=== PATIENT | male | born 1955 | race American Indian/Alaskan Native ===

== ENCOUNTER 2021-08-07 07:32 | Day surgery (SDC) | payer OTHER ==
[2021-08-04 11:54] LABS: Hematocrit 43.8 % (35.5-45.6); Hemoglobin 14.4 gm/dl (11.8-15.2); Mean Corpuscular HGB Conc 33 % (32-34); Mean Corpuscular Volume 90 fl (84-94); Platelet Count 249 K/mm3 (140-440); Red Blood Count 4.87 M/mm3 (3.65-5.03); Red Cell Distribution Width 15.5 % (13.2-15.2)
[2021-08-04 12:06] LABS: BUN/Creatinine Ratio 12; Blood Urea Nitrogen 12 mg/dL (9-20); Hemolysis Index 2
--- NOTE | 2021-08-04 21:07 | Ultrasound Report ---
US extrem nonvascular LTD LT INDICATION / CLINICAL INFORMATION: LIPOMA LEFT SHOULDER AND LEFT UPPER BACK. COMPARISON: None available. FINDINGS: There is a oval well-defined subcutaneous mass at the left upper back near the shoulder measuring 6.0 x 1.6 x 4.2 cm. Additional similar-appearing mass at midline measures 7.0 x 2.5 x 5.7 cm. IMPRESSION: 1. Subcutaneous masses in the upper back are nonspecific but likely represent lipomas or sebaceous cy sts. Signer Name: Hector Bailey MD Signed: 08/04/2021 9:03 PM Workstation Name: [id number]
[~2021-08-07 07:32] MED LIST: BUPIVACAINE/PF (0.5%) 5 MG/1 ML 30 ML VIAL INFILTRATI ONE; LIDOCAINE 1%/EPINEPHRINE 1:100,000 VIAL (20 ML) INFILTRATI ONE; ceFAZolin/STERILE WATER 2 GM/20 ML SYRINGE IV NR
[2021-08-07] MEDS ORDERED: LACTATED RINGERS 1,000 ML ONE (07:43)
[2021-08-07] MEDS ORDERED: ONDANSETRON 4 MG/2 ML INJ IV PRN (07:50)
[2021-08-07] MEDS ORDERED: HYDROmorphone 1 MG/1 ML INJ IV PRN ×2 (07:50)
[2021-08-07] MEDS ORDERED: LACTATED RINGERS 1,000 ML IV SCH (08:00)
[2021-08-07] MEDS ORDERED: MIDAZOLAM 2 MG/2 ML INJ IV NR (08:00)
[2021-08-07] MEDS ORDERED: propofoL 200 MG/20 ML VIAL IV ONE ×2 (08:02→08:45)
[2021-08-07] MEDS ORDERED: fentaNYL 250 MCG/5 ML INJ ONE (08:02)
[2021-08-07] MEDS ORDERED: ROCURONIUM 50 MG/5 ML INJ IV ONE (08:02)
[2021-08-07] MEDS ORDERED: LIDOCAINE PF 100 MG/5 ML (CARDIAC SYRINGE) IV ONE (08:02)
--- NOTE | 2021-08-07 08:05 | Anesthesia Day of Surgery ---
Anesthesia Day of Surgery - Day of Surgery Patient Examined: Yes Patient H&P Reviewed: Yes Patient is NPO: Yes
--- NOTE | 2021-08-07 08:06 | Anesthesia Consultation ---
Anesthesia Consult and Med Hx Date of service: 08/07/21 - Airway Anesthetic Teeth Evaluation: Crowns (Missing) ROM Head & Neck: Adequate Mental/Hyoid Distance: Adequate Mallampati Class: Class II Intubation Access Assessment: Good - Pre-Operative Health Status ASA Pre-Surgery Classification: ASA2 Proposed Anesthetic Plan: MAC (GA if needed) - Pulmonary Hx Smoking: Yes (COUPLE CIG PER DAY X 36 YEARS) Hx Sleep Apnea: No - Cardiovascular System Hx Hypertension: Yes (CONTROLLED WITH MEDICATION) Hx Heart Attack/AMI: No (Pt reports negative ETT <5 years ago) - Central Nervous System Hx Psychiatric Problems: No - Gastrointestinal Hx Gastroesophageal Reflux Disease: No - Hematic Hx Anemia: No Hx Sickle Cell Disease: No - Other Systems Hx Alcohol Use: Yes (OCCASIONALLY) Hx Substance Use: No Hx Cancer: No
[2021-08-07] MEDS ORDERED: ePHEDrine SULFATE 50 MG/1 ML INJ ONE (09:03)
[2021-08-07] MEDS ORDERED: BUPIVACAINE/PF (0.5%) 5 MG/1 ML 30 ML VIAL INFILTRATI ONE ×2 (09:05)
[2021-08-07] MEDS ORDERED: LIDOCAINE 1%/EPINEPHRINE 1:100,000 VIAL (20 ML) INFILTRATI ONE ×2 (09:05)
[2021-08-07] MEDS ORDERED: SODIUM CHLORIDE 0.9% IRR 1,500 ML BOTTLE IR ONE (09:05)
[2021-08-07] MEDS ORDERED: dexAMETHasone 20 MG/5 ML VIAL ONE (09:13)
[2021-08-07] MEDS ORDERED: NEOSTIGMINE 10MG/10 ML INJ MDV ONE (09:13)
[2021-08-07] MEDS ORDERED: ONDANSETRON 4 MG/2 ML INJ ONE (09:13)
[2021-08-07] MEDS ORDERED: GLYCOPYRROLATE 0.4 MG/2 ML INJ ONE (09:13)
--- NOTE | 2021-08-07 09:43 | Short Stay Summary ---
Short Stay Documentation Date of service: 08/07/21 - History H&P: obtained from office Social history: no significant social history - Allergies and Medications Current Medications: Allergies No Known Allergies Allergy (Verified 07/23/21 11:07) Home Medications Medication Instructions Recorded Confirmed Last Taken Type Rosuvastatin (Nf) [Crestor] 5 mg PO QHS 06/23/13 07/23/21 06/29/13 History amLODIPine 5 mg PO DAILY 06/23/13 07/23/21 06/30/13 05:15 History Active Medications Cefazolin Sodium (Cefazolin/Sterile Water 2 Gm/20 Ml Syringe) 2 gm IV PREOP NR Stop: 08/07/21 23:00 Hydromorphone HCl (Hydromorphone 1 Mg/1 Ml Inj) 0.25 mg IV Q10MIN PRN PRN Reason: Pain, Moderate (4-6) Stop: 08/07/21 20:00 Hydromorphone HCl (Hydromorphone 1 Mg/1 Ml Inj) 0.5 mg IV Q10MIN PRN PRN Reason: Pain , Severe (7-10) Stop: 08/07/21 20:00 Lactated Ringer's (Lactated Ringers) 1,000 mls @ 125 mls/hr IV DIRECT SIRI Midazolam HCl (Midazolam 2 Mg/2 Ml Inj) 2 mg IV PREOP NR Stop: 08/07/21 23:59 Ondansetron HCl (Ondansetron 4 Mg/2 Ml Inj) 4 mg IV ONCE PRN PRN Reason: Nausea And Vomiting Stop: 08/07/21 11:00 - Physical exam General appearance: no acute distress Integumentary: no rash HEENT: Atraumatic Heart: Regular rate Gastrointestinal: normal Extremities: no ischemia, No edema Neurological: Normal gait, Normal speech - Brief post op/procedure progress note Date of procedure: 08/07/21 Pre-op diagnosis: 4 cm lipoma posterior left shoulder 6 cm lipoma mid back Post-op diagnosis: same Procedure: Audi-Cut core biopsy of lipoma mid back, excision of lipoma of left shoulder Anesthesia: BENA Surgeon: TERENCE LEDEZMA Estimated blood loss: minimal Pathology: list (Audi-Cut core biopsy 12-gauge lipoma mid back, 4 cm lipoma of left shoulder posteriorly) Specimen disposition: to lab Condition: stable - Hospital course Hospital course: Patient did well intraoperatively and was subsequently discharged from the PACU - Disposition Condition at discharge: Good Disposition: 01 HOME / SELF CARE / HOMELESS Short Stay Discharge Plan Activity: no restrictions Weight Bearing Status: Weight Bear as Tolerated Diet: regular Wound: open to air Follow up with: ELVIN HOLGUIN MD [Primary Care Provider] - 7 Days
[2021-08-07] MEDS ORDERED: HYDROcodone/ACETAMINOPHEN 5-325 MG TAB PO PRN (09:44)
[2021-08-07 11:08] VITALS: BP 141/86
--- NOTE | 2021-08-07 12:29 | Operative Report ---
Operative Report Operative Report: Date of procedure: 08/07/2021 Preop diagnosis: Lipoma posterior left shoulder and midline of back Postop diagnosis same Procedure: 12-gauge Audi-Cut core biopsy of lipoma of mid back and excision of lipoma of the left shoulder. Surgeon Dr. Tello Anesthesia: General endotracheal anesthesia Estimated blood loss: Minimal Specimen: 12-gauge Audi-Cut core biopsy of lipoma mid back and lipoma of left shoulder Estimated blood loss: Minimal Findings: This is a 66-year-old -[place] gentleman who has complaints of pain referable to a lipoma on the posterior aspect of the left shoulder. The the left shoulder lipoma is about 4 cm in size. A 5 or 6 cm lipoma that is flatter is noted in the upper mid back. It is asymptomatic at this time. The patient is asking only for a biopsy of this. Patient is taken to the OR and the consents are reviewed timeouts are on the chart. Patient received 2 g advanced Ancef IV. The patient is placed in a [id number] lateral decubitus position after intubation. The right shoulder and the midline lipoma are prepped with ChloraPrep and draped in a sterile fashion. A #15 scalpel was used to make a 3 mm incision on the inferior left corner of the midline lipoma. 4 core biopsies were obtained from the lipoma in this area. The wound is closed with Dermabond. The #15 scalpel was then used to make a incision over the lipoma in the posterior left shoulder. Flaps are elevated with electrocautery. Lipomas a completely excised. Hemostasis is good. The wound is closed in layers with 2-0 Vicryl to the subcutaneous tissue. A subcuticular closure is done with 4-0 Monocryl. Patient tolerated seizure well.
--- NOTE | 2021-08-07 12:55 | Post Anesthesia Evaluation ---
- Post Anesthesia Evaluation Patient Participated: Yes Airway Patent: Yes Stable Respiratory Function: Yes Nausea/Vomiting: No Temp > 96.8F: Yes Pain Manageable: Yes Adequeate Hydration: Yes Anesthesia Complications: No Block Receding Appropriately: Not Applicable Patient on Ventilator: No
== END 2021-08-07 11:00 | disposition home or self-care (01) ==
LOC: OR 07:32
PROVIDERS: ATTEND Surgery
DX: D17.22 Benign lipomatous neoplasm of skin and subcutaneous tissue of left arm (principal); D17.1 Benign lipomatous neoplasm of skin and subcutaneous tissue of trunk; E78.00 Pure hypercholesterolemia, unspecified; Z79.899 Other long term (current) drug therapy; Z87.891 Personal history of nicotine dependence; Z72.89 Other problems related to lifestyle; Z98.890 Other specified postprocedural states; Z90.49 Acquired absence of other specified parts of digestive tract
CPT/HCPCS: 21931; 23071; 36415; 76882; 80048; 85027; 88304; 88305; J0690; J1100; J1815; J2001; J2405; J2704; J2710; J3010; J3490; J7120; 88307